=== PATIENT | female | born 1945 | race Caucasian/White ===

== ENCOUNTER 2017-10-07 09:32 | Emergency (ER) | payer OTHER, BC ==
[~2017-10-07] VITALS: Ht 157.5 cm; Wt 57.0 kg
[~2017-10-07 09:32] MED LIST: ALDACTONE25 MG PO; AMITRIPTYLINE H10 MG PO; ANTIVERT25 MG PO; ASPIR 8181 M1 PO; CEPHALEXIN500 MG PO; COUMADIN,JANTOVE5 MG PO; COUMADIN1 MG PO; DIOVAN80 MG PO; DOXEPIN HCL75 MG PO; Diabeta,Micronase PO; ESTROPIPATE0.75 MG PO; FUROSEMIDE40 MG PO; GLUCOPHAGE1000 MG PO; HYDRALAZINE HCL25 MG PO; KLOR-CON 1010 ME1 PO; LASIX20 MG PO; LEFLUNOMIDE20 MG PO; LOPRESSOR12.5 MG PO; METFORMIN HCL500 MG PO; MORPHINE SULFAT15 M1 PO; NEURONTIN300 MG PO; OXYCODONE HCL-1 EAC1 PO; PRAVACHOL40 M1 PO; PRAVASTATIN SOD20 MG PO; Pravachol PO; SINEQUAN10 MG PO; SINEQUAN25 MG PO; SUPER B COMP1 TABLET PO; TRADJENTA5 MG PO; TYLENOL EXTRA500 MG PO; VITAMIN D 1000 MG; VITAMIN D31000 UNI2 PO; [UNRECOGNIZED DRUG - OTHER]; [UNRECOGNIZED DRUG - OTHER]
[2017-10-07 09:36] VITALS: BP 151/73
[2017-10-07] MEDS ORDERED: MORPHINE SULFAT15 M1 PO (10:49)
== END 2017-10-07 11:07 | disposition home or self-care (01) ==
LOC: EME 09:32
DX: G62.9 Polyneuropathy, unspecified (principal); Z76.0 Encounter for issue of repeat prescription; G89.29 Other chronic pain; Z79.891 Long term (current) use of opiate analgesic; E11.9 Type 2 diabetes mellitus without complications; Z79.84 Long term (current) use of oral hypoglycemic drugs; Z79.82 Long term (current) use of aspirin
CPT/HCPCS: 99281; 99283